=== PATIENT | female | born 1955 | race Caucasian/White ===

== ENCOUNTER → 2016-08-15 | Outpatient (REF) | payer MEDICARE, MEDICAID | LOC: LAB 15:57 | PROVIDERS: ATTEND Family Medicine | DX: Z01.818 Encounter for other preprocedural examination (principal) | CPT/HCPCS: 82565; 84520 ==

== ENCOUNTER → 2016-08-16 | Outpatient (CLI) | payer MEDICARE, MEDICAID | LOC: RAD 07:51 | PROVIDERS: ATTEND Family Medicine | DX: J39.8 Other specified diseases of upper respiratory tract (principal); R91.1 Solitary pulmonary nodule | CPT/HCPCS: 71260; Q9967 ==

== ENCOUNTER → 2016-08-30 | Outpatient (CLI) | payer MEDICARE, MEDICAID ==
[2016-08-30 12:33] LABS: MEAN PLATELET VOLUME 9.9 FL (6.0-9.5); WHITE BLOOD COUNT 8.05 10^3uL (4.0-11.0)
[2016-08-30 12:35] LABS: MEAN CORPUSCULAR HEMOGLOBIN 36.1 PG (26.0-34.0); MEAN CORPUSCULAR HGB CONC 36.4 g/dL (31.0-37.0)
[2016-08-30 12:41] LABS: ALBUMIN 3.9 g/dL (3.4-5.0); ANION GAP 14.2 MEQ/L (3-15); CALCULATED IONIZED CALCIUM 3.9 mg/dL (3.8-4.6); TOTAL PROTEIN 7.3 g/dL (6.4-8.5)
== END ==
LOC: RAD 12:16
PROVIDERS: ATTEND Family Medicine
DX: R41.82 Altered mental status, unspecified (principal); E11.9 Type 2 diabetes mellitus without complications
CPT/HCPCS: 36415; 70450; 80053; 83036; 84443; 85027

== ENCOUNTER → 2016-09-02 | Outpatient (CLI) | payer MEDICARE, MEDICAID ==
[2016-09-02 08:02] LABS: AMPHETAMINE SCREEN, URINE Negative (Negative); CANNABINOID SCREEN, URINE Negative (Negative); METHAMPHETAMINE SCREEN URINE S NEGATIVE (NEGATIVE); OPIATE SCREEN URINE Positive (Negative)
[2016-09-02 08:03] LABS: PROPOXYPHENE STAT NEGATIVE (NEGATIVE)
== END ==
LOC: LAB 07:27
PROVIDERS: ATTEND Family Medicine
DX: E11.9 Type 2 diabetes mellitus without complications (principal); R41.82 Altered mental status, unspecified
CPT/HCPCS: 80307

== ENCOUNTER 2016-09-21 20:37 | Emergency (ER) | payer MEDICARE, MEDICAID ==
[~2016-09-21] VITALS: Ht 157.5 cm; Wt 67.3 kg
[2016-09-21 20:37] VITALS: BP 147/77
--- NOTE | 2016-09-21 20:45 | NUR ---
PER EMS PATIENT HAS PERCOCET AND CIG / APPLICATION DESIGNER IN POCKETS AND SHE HAD TRIED TO TAKE A PERCOCET PRIOR TO COMING IN VIA EMS
--- NOTE | 2016-09-21 21:01 | NUR ---
Patient left the floor, has been belligerent. Unwilling to wait while Dr. Sam speaks with her Orthopedic surgeon to take off cast. Has also been very demanding that she be taken care of Immediately, very uncooperative.
--- NOTE | 2016-09-21 21:05 | NUR ---
Jose Daniel Cardenas RN notified Selene pina suprevisor that patient left AMA
== END 2016-09-21 21:00 | disposition left against medical advice (07) ==
LOC: ED 20:39
DX: S52.91XG Unspecified fracture of right forearm, subsequent encounter for closed fracture with delayed healing (principal); V49.9XXD Car occupant (driver) (passenger) injured in unspecified traffic accident, subsequent encounter; Z98.890 Other specified postprocedural states; Z91.19 Patient's noncompliance with other medical treatment and regimen; R45.4 Irritability and anger
CPT/HCPCS: 99282

== ENCOUNTER → 2016-09-21 | Outpatient (CLI) | payer MEDICARE, MEDICAID | LOC: EMS 20:30 | PROVIDERS: ATTEND Emergency Medicine | DX: S52.91XG Unspecified fracture of right forearm, subsequent encounter for closed fracture with delayed healing (principal); X58.XXXD Exposure to other specified factors, subsequent encounter; Z91.19 Patient's noncompliance with other medical treatment and regimen; R45.4 Irritability and anger ==

== ENCOUNTER 2016-09-23 14:18 | Emergency (ER) | payer MEDICARE, MEDICAID ==
[~2016-09-23] VITALS: Ht 157.5 cm; Wt 68.0 kg
[2016-09-23 14:22] VITALS: BP 128/82
--- NOTE | 2016-09-23 14:45 | NUR ---
Patient's caser up from [facility] is with her. in room. [facility] contacted for possible admission. Patient tried to elope but returned to room. Meal tray served.
[2016-09-23 15:09] LABS: BASOPHILS % (AUTO) 0 % (0-2); EOSINOPHILS # (AUTO) 0.3 10^3uL; EOSINOPHILS % (AUTO) 4 % (0-4); LYMPHOCYTES # (AUTO) 2.7 X10^3; MEAN CORPUSCULAR HGB CONC 34.4 g/dL (31.0-37.0); MEAN PLATELET VOLUME 9.5 FL (6.0-9.5); MONOCYTES # (AUTO) 0.6 X10^3; MONOCYTES % (AUTO) 7 % (3-11); NEUTROPHILS # (AUTO) 5.4 X10^3; NEUTROPHILS % (AUTO) 60 % (51-67); PLATELET COUNT 269 10^3uL (150-450)
[2016-09-23 15:10] LABS: MEAN CORPUSCULAR HEMOGLOBIN 34.3 PG (26.0-34.0); MEAN CORPUSCULAR VOLUME 100 FL (80-100)
--- NOTE | 2016-09-23 15:20 | NUR ---
called bradley garber for assistance of placement for patient, gave us info for involuntary placement at [facility] , doctor called this hospital at this time
[2016-09-23 15:26] LABS: ALBUMIN 3.6 g/dL (3.4-5.0); ALKALINE PHOSPHATASE 132 U/L (38-126); BUN/CREATININE RATIO 20 (10-20); CALCULATED IONIZED CALCIUM 4.1 mg/dL (3.8-4.6); TOTAL PROTEIN 6.8 g/dL (6.4-8.5)
--- NOTE | 2016-09-23 15:32 | NUR ---
Patient refused to void for urine specimen.
--- NOTE | 2016-09-23 15:42 | NUR ---
Patient has eloped. marketing content manager is calling [facility]. Patient cannot be found.
== END 2016-09-23 15:30 | disposition home or self-care (01) ==
LOC: EDUNIT# 14:18 → ED 14:20
DX: R45.4 Irritability and anger (principal); F17.210 Nicotine dependence, cigarettes, uncomplicated; R41.82 Altered mental status, unspecified
CPT/HCPCS: 36415; 80053; 85025; 99282; G0480; 80320; 80329

== ENCOUNTER 2016-09-23 19:14 | Emergency (ER) | payer MEDICARE, MEDICAID ==
[~2016-09-23] VITALS: Ht 157.5 cm; Wt 77.2 kg
--- NOTE | 2016-09-23 19:41 | NUR ---
REST ROOM MAID STAFF MARTIN CALLED Jessica BLACKMAN D/T PT AGRESSIVE
[2016-09-23] MEDS ORDERED: oxycODONE/ACETAMINOPHEN 10MG-325 MG (PERCOCET-10) TABLET PO ONE (20:20)
[2016-09-23] MEDS ORDERED: LORazepam 1 MG (ATIVAN) TABLET PO ONE (20:20)
--- NOTE | 2016-09-23 20:29 | NUR ---
Pt is a bad historian. Not sure if the meds on file are correct. Pts son states that she abuses her pain meds and took a full bottle of percocets since . He believes it was a 30 day supply.
--- NOTE | 2016-09-23 20:40 | NUR ---
Pt is very beligerent and rude. She also likes to negotiate her care. She will only give urine or have labs done if she receives pain medication. Pt makes threats constantly such as "I'm not staying if I don't get pain medicaiton" or "I'm not going to wait if I can't have a cigarette." Pts son is very helpful in getting pt to comply and keep her from leaving. Pts son states that she does not take care of herself properly and is abusing her pain meds. Pt does not deny anything said by the son and agrees that she isn't taking care of herself well. She is voluntarily willing to go to [facility].
[2016-09-23 20:43] LABS: BILIRUBIN,URINE Negative (Negative); CLARITY,URINE Clear; GLUCOSE, URINE (UA) Negative (Negative); LEUKOCYTE ESTERASE ,URINE Negative (Negative); PH,URINE 8.5 (5.0 - 8.0)
[2016-09-23 20:44] LABS: COLOR,URINE Dark Yellow
[2016-09-23 21:05] LABS: AMPHETAMINE SCREEN, URINE Negative (Negative); CANNABINOID SCREEN, URINE Negative (Negative); METHAMPHETAMINE SCREEN URINE S NEGATIVE (NEGATIVE); OPIATE SCREEN URINE Positive (Negative)
[2016-09-23 21:06] LABS: PROPOXYPHENE STAT NEGATIVE (NEGATIVE)
--- NOTE | 2016-09-23 21:18 | NUR ---
PT C/O R ARM PAIN SHE NO LONGER HAS CAST ON IT. PLACED PILLOW TO SUPPORT THE ARM AND ANOTHER WARM BLANKET
--- NOTE | 2016-09-23 22:00 | NUR ---
CALLED [facility] TO SEE IF THEY COULD TRANSPORT PT TO [facility]. THEY SAID THEY ARE UNABLE TO, WOULD BE ABLE IN MORNING, SO CALLED [facility] AND THEY CAN TRANSPORT PT IN APPROX 4 HOURS
[2016-09-24] MEDS ORDERED: oxycODONE/ACETAMINOPHEN 10MG-325 MG (PERCOCET-10) TABLET PO ONE (00:30)
[2016-09-24] MEDS ORDERED: LORazepam 1 MG (ATIVAN) TABLET PO ONE (00:30)
--- NOTE | 2016-09-24 01:40 | NUR ---
Report given to Breann Toribio RN at [facility].
--- NOTE | 2016-09-24 01:49 | NUR ---
Pt is sleeping comfortably in her room after receiving her medications. Pt is still very agreeable to go to [facility].
--- NOTE | 2016-09-24 02:20 | NUR ---
[facility] here to transfer pt
[2016-09-24 02:42] VITALS: BP 147/79
== END 2016-09-24 02:42 ==
LOC: ED 19:16
DX: S52.91XG Unspecified fracture of right forearm, subsequent encounter for closed fracture with delayed healing (principal); Z98.890 Other specified postprocedural states; G89.21 Chronic pain due to trauma; F43.10 Post-traumatic stress disorder, unspecified; F41.9 Anxiety disorder, unspecified; V49.9XXA Car occupant (driver) (passenger) injured in unspecified traffic accident, initial encounter; Y92.410 Unspecified street and highway as the place of occurrence of the external cause; F17.210 Nicotine dependence, cigarettes, uncomplicated
CPT/HCPCS: 81003; 99284; A9270; G0478; 80307

== ENCOUNTER → 2016-10-02 | Outpatient (CLI) | payer MEDICARE, MEDICAID ==
[~2016-10-02] VITALS: Ht 157.5 cm; Wt 65.8 kg
[2016-10-02] MEDS: LORazepam 2 MG/ML (ATIVAN) 1 ML VIAL IM ONE (12:40)
[2016-10-02] MEDS: HYDROmorphone 2 MG/ML (DILAUDID) 1 ML SYRINGE IM ONE (12:49)
== END ==
LOC: EUOP 12:21
PROVIDERS: ATTEND Family Medicine
DX: R52 Pain, unspecified (principal)
CPT/HCPCS: 96372; J1170; J2060

== ENCOUNTER → 2016-10-05 | Outpatient (CLI) | payer MEDICARE, MEDICAID | LOC: EMS 11:40 | PROVIDERS: ATTEND Emergency Medicine | DX: M79.601 Pain in right arm (principal); R21 Rash and other nonspecific skin eruption; L98.8 Other specified disorders of the skin and subcutaneous tissue ==

== ENCOUNTER → 2016-10-05 | Emergency (ER) | payer MEDICARE, MEDICAID ==
[~2016-10-05] VITALS: Ht 157.5 cm; Wt 68.0 kg
[~2016-10-05] MED LIST: NS IV 500 ML 500 ML IV SCH; NS IV 500 ML 500 ML ONE; SODIUM CHLORIDE FLUSH 10 ML SYR IV PRN; SODIUM CHLORIDE FLUSH 3 ML SYR IV PRN
[2016-10-05 12:01] VITALS: BP 76/30
--- NOTE | 2016-10-05 12:12 | NUR ---
First bag of fluids 500ml ns ARTURO at 1212 Addendum: 10/05/16 at 1301 by [id number] nicola at 1245
[2016-10-05 12:57] LABS: MEAN CORPUSCULAR HGB CONC 33.8 g/dL (31.0-37.0); MEAN PLATELET VOLUME 11.2 FL (6.0-9.5); PLATELET COUNT 179 10^3uL (150-450); WHITE BLOOD COUNT 6.72 10^3uL (4.0-11.0)
[2016-10-05 12:58] LABS: MEAN CORPUSCULAR VOLUME 104 FL (80-100)
[2016-10-05 13:12] LABS: ALBUMIN 3.1 g/dL (3.4-5.0); ALKALINE PHOSPHATASE 82 U/L (38-126); ANION GAP 9.3 MEQ/L (3-15); BUN/CREATININE RATIO 24 (10-20); CALCULATED IONIZED CALCIUM 3.7 mg/dL (3.8-4.6)
--- NOTE | 2016-10-05 13:15 | NUR ---
This nurse heard discussion with RT and pt going on and went to pt room. This nurse arrived and observed pt very agitated. Pt states to this nurse that she wants to leave and she can drink fluids at home. This nurse tried to deescalate pt, but pt refused to wait for fluids to finish infusing. Pt almost ripped her IV out, but this nurse was able to get her to sit on the side of the bed and wait so this nurse could removed IV, as well as sign AMA paperwork. Pt notifed that she could come back if she needs more care. This nurse asked pt to wait in the waiting room so a cab could be called for her, since she had no ride.
[2016-10-05 14:47] LABS: BAND NEUTROPHILS % 0 % (0-6); EOSINOPHILS % 7 % (0-4); LYMPHOCYTES # 2.4 #; MONOCYTES # 0.7 #; MONOCYTES % 11 % (3-11); RBC MORPH NORMAL (NORMAL); SEGMENTED NEUTROPHILS % 45 % (51-67); TOTAL CELLS COUNTED 100
== END | disposition left against medical advice (07) ==
LOC: EDUNIT# 11:57 → ED 11:58
DX: R07.89 Other chest pain (principal); L30.4 Erythema intertrigo; M79.631 Pain in right forearm; R45.1 Restlessness and agitation; Z91.19 Patient's noncompliance with other medical treatment and regimen
CPT/HCPCS: 36415; 71010; 80053; 82140; 84484; 85025; 85610; 85730; 99281; J7040; 99283

== ENCOUNTER → 2016-10-14 | Outpatient (CLI) | payer MEDICARE, MEDICAID ==
[~2016-10-14] MED LIST changes: +ACHYD1T PO; +ACYC30OI TP; +ALBU8CC IH; +ALEN70TA47; +ALPR.5T PO; +ALPR0.25 PO; +ALPR1TAB7 PO; +AMIT50TA3; +AMT25T PO; +BISO1TAB3 PO; +CLN.1T; +CLON0.5T3 PO; +CLON1TAB3 PO; +CODE-54 PO; +CRS350T PO; +DICL50TA PO; +DIPH1TAB25; +ENXP40I.4; +HCT25T PO; +HCTZ12.5T GT; +HYDR-3702 PO; +HYDR-3811 PO; +ISOS30TA7 PO; +KETO50CA; +LEVO250T11 PO; +LSNP10T PO; +MNTL10T PO; +NAPR550T PO; +NEOM28OI3 TP; +NITR0.4T7 SL; +NITR100C10; +NO HOME MEDICATIONS; -NS IV 500 ML 500 ML IV SCH; -NS IV 500 ML 500 ML ONE; +ONDA-50; +ONDA4TAB8 PO; +ONDA4TABED; +ONDA4TABED SL; +ONDN4T PO; +OXYC-272 PO; +OXYC1TAB12 PO; +OXYC1TAB8 PO; +POLY1DRO2 OD; +PREG50CA2 PO; -SODIUM CHLORIDE FLUSH 10 ML SYR IV PRN; -SODIUM CHLORIDE FLUSH 3 ML SYR IV PRN; +TRM50T PO
[2016-10-14 15:22] LABS: MEAN CORPUSCULAR HEMOGLOBIN 35.3 PG (26.0-34.0); MEAN CORPUSCULAR HGB CONC 34.7 g/dL (31.0-37.0); MEAN PLATELET VOLUME 10.8 FL (6.0-9.5); WHITE BLOOD COUNT 7.23 10^3uL (4.0-11.0)
== END ==
LOC: LAB 15:05
PROVIDERS: ATTEND Family Medicine
DX: D51.0 Vitamin B12 deficiency anemia due to intrinsic factor deficiency (principal)
CPT/HCPCS: 36415; 82607; 85027

== ENCOUNTER 2016-11-06 14:00 | Outpatient (RCR) | payer OTHER, MEDICARE, MEDICAID ==
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
[2016-11-13] MEDS ORDERED: DIPH1TAB25 PO (16:31)
[2016-11-13] MEDS ORDERED: MNTL10T PO (16:31)
[2016-11-13] MEDS ORDERED: OXYC10TA7 PO (16:31)
[2016-11-13] MEDS ORDERED: ONDAN4ODT PO (16:31)
[2016-11-13] MEDS ORDERED: QUET50TA76 PO (16:31)
[2016-11-13] MEDS ORDERED: ALBU8.5H6 INH (16:31)
[2016-11-13] MEDS ORDERED: CYAN10004 IM (16:31)
[2016-11-13] MEDS ORDERED: CLON1TAB3 PO (16:31)
[2016-11-13] MEDS ORDERED: AMIT50TA3 PO (16:31)
[2016-11-13] MEDS ORDERED: ISM30TCR PO (16:31)
== END 2016-12-09 11:09 | disposition home or self-care (01) ==
LOC: OT 14:00
PROVIDERS: ATTEND Orthopaedic Surgery
DX: S52.91 Unspecified fracture of right forearm (principal); M25.621 Stiffness of right elbow, not elsewhere classified; M25.631 Stiffness of right wrist, not elsewhere classified; V43.51XD Car driver injured in collision with sport utility vehicle in traffic accident, subsequent encounter

== ENCOUNTER 2016-11-13 07:48 | Observation (INO) | payer MEDICARE, MEDICAID ==
[~2016-11-13] VITALS: Ht 165.1 cm; Wt 70.1 kg
[~2016-11-13 07:48] MED LIST changes: -ALBU8.5H6 INH; -AMIT50TA3 PO; -CYAN10004 IM; -DIPH1TAB25 PO; -ISM30TCR PO; -ONDAN4ODT PO; -OXYC10TA7 PO; -QUET50TA76 PO
[2016-11-13] MEDS ORDERED: LORazepam 2 MG/ML (ATIVAN) 1 ML VIAL IV ONE (07:55)
[2016-11-13] MEDS ORDERED: BACITRACIN OINTMENT 0.9 GM PACKET TOP ONE (07:55)
[2016-11-13] MEDS ORDERED: ONDANSETRON 2 MG/ML (Z0FRAN) 2 ML VIAL IV ONE (07:55)
[2016-11-13] MEDS ORDERED: fentaNYL 100 MCG/2 ML VIAL IV ONE (07:55)
[2016-11-13] MEDS ORDERED: LIDOCAINE/EPINEPHRINE 1%-1:100,000 (XYLOCAINE) 20ML VIAL TOP ONE (07:55)
[2016-11-13 07:58] LABS: BASOPHILS % (AUTO) 0 % (0-2); EOSINOPHILS # (AUTO) 0.4 10^3uL; EOSINOPHILS % (AUTO) 5 % (0-4); LYMPHOCYTES # (AUTO) 3.2 X10^3; MEAN CORPUSCULAR HEMOGLOBIN 33.7 PG (26.0-34.0); MEAN CORPUSCULAR HGB CONC 33.7 g/dL (31.0-37.0); MEAN CORPUSCULAR VOLUME 100 FL (80-100); MEAN PLATELET VOLUME 10.8 FL (6.0-9.5); MONOCYTES # (AUTO) 0.7 X10^3; MONOCYTES % (AUTO) 7 % (3-11); NEUTROPHILS # (AUTO) 5.3 X10^3; NEUTROPHILS % (AUTO) 55 % (51-67); PLATELET COUNT 202 10^3uL (150-450); WHITE BLOOD COUNT 9.72 10^3uL (4.0-11.0)
[2016-11-13 08:07] LABS: BILIRUBIN,URINE Negative (Negative); CLARITY,URINE Clear; COLOR,URINE Yellow; GLUCOSE, URINE (UA) Negative (Negative); LEUKOCYTE ESTERASE ,URINE Negative (Negative); UROBILINOGEN,URINE 0.2 mg/dL (0.2-1.0)
[2016-11-13 08:13] LABS: AMPHETAMINE SCREEN, URINE Negative (Negative); METHAMPHETAMINE SCREEN URINE S NEGATIVE (NEGATIVE)
[2016-11-13 08:13] LABS: ALBUMIN 4.3 g/dL (3.4-5.0); ALKALINE PHOSPHATASE 149 U/L (38-126); ANION GAP 21.5 MEQ/L (3-15); BUN/CREATININE RATIO 13 (10-20); CALCULATED IONIZED CALCIUM 3.6 mg/dL (3.8-4.6); CREATINE KINASE 94 U/L (30-135); TOTAL PROTEIN 8.1 g/dL (6.4-8.5)
[2016-11-13 08:14] LABS: CANNABINOID SCREEN, URINE Negative (Negative); OPIATE SCREEN URINE Negative (Negative); PROPOXYPHENE STAT NEGATIVE (NEGATIVE)
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
--- NOTE | 2016-11-13 09:12 | NUR ---
pt snoring, eyes open
--- NOTE | 2016-11-13 10:17 | NUR ---
correctional case manager in room
--- NOTE | 2016-11-13 10:35 | NUR ---
Condition repor from ED received
[2016-11-13 10:45] VITALS: BP 108/60
--- NOTE | 2016-11-13 10:45 | NUR ---
Admit to room 345 per cart - total assist transfer c slide board - unkept foul smelling body odor
[2016-11-13] MEDS ORDERED: ONDANSETRON 2 MG/ML (Z0FRAN) 2 ML VIAL IV PRN (10:55)
--- NOTE | 2016-11-13 10:55 | NUR ---
Up to BSC c assist X2 -sitting on BSC tipped forward --> staff assisting for safety - back to bed c assist X2 - unkept, dried blood on face and hair - "I need to go - I have to move out today" - repeats self over and over - admission assessment in progress - repeats above and gives short abrupt answer to only a few of the questions
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
[2016-11-13 12:00] VITALS: BP 117/65
[2016-11-13] MEDS ORDERED: NS FLUSH 3 ML PRN IV (12:05)
[2016-11-13] MEDS ORDERED: NS FLUSH 10 ML PRN IV (12:05)
[2016-11-13 13:20] VITALS: BP 106/56
[2016-11-13 14:10] VITALS: BP 106/50
--- NOTE | 2016-11-13 14:10 | NUR ---
Awake - constantly requesting "I want to go home" "I have a dog" "My son doesn't want any thing to do with me"
[2016-11-13 16:10] VITALS: BP 96/62
[2016-11-13] MEDS ORDERED: OXYC10TA7 PO (16:31)
[2016-11-13] MEDS ORDERED: QUET50TA76 PO (16:31)
[2016-11-13] MEDS ORDERED: ALBU8.5H6 INH (16:31)
[2016-11-13] MEDS ORDERED: CYAN10004 IM (16:31)
[2016-11-13] MEDS ORDERED: AMIT50TA3 PO (16:31)
[2016-11-13] MEDS ORDERED: MNTL10T PO (16:31)
[2016-11-13] MEDS ORDERED: CLON1TAB3 PO (16:31)
[2016-11-13] MEDS ORDERED: DIPH1TAB25 PO (16:31)
[2016-11-13] MEDS ORDERED: ISM30TCR PO (16:31)
[2016-11-13] MEDS ORDERED: ONDAN4ODT PO (16:31)
--- NOTE | 2016-11-13 16:34 | NUR ---
MED REC COMPLETED-current med list obtained from Ext Med History application, PCP listing, and retail pharmacies.
--- NOTE | 2016-11-13 17:00 | NUR ---
Refused supper - "I want Pepsi"
--- NOTE | 2016-11-13 18:00 | NUR ---
PV counselor in room
--- NOTE | 2016-11-13 18:10 | NUR ---
Dr Velarde in room
--- NOTE | 2016-11-13 18:30 | NUR ---
IV DC'd from [facility] - pressure held until bleeding stopped - drsg applied - clothing from the clothes closet brought to patient
--- NOTE | 2016-11-13 18:44 | NUR ---
Dr Velarde in room
--- NOTE | 2016-11-13 18:55 | NUR ---
Cece called from ICU - phone given to Julio Cesar for her to give directions to the taxi staff - Taxi staff reports will pick her up @ the ED entrance - "I will just wait her in the lobby" - "What does that [facility] have written on it? " --- while in ED discussing with Cherrie TORRES patient waiting in ED lobby for van PBX software support representative came to us and said "she just got into the white van" -- Cherrie and Anjali Connell went out to the van - Private person was calling the taxi to verify they were coming to pick her up - Cherrie requested patient exit van
--- NOTE | 2016-11-13 19:05 | NUR ---
Embedded Linux Developer notified of patient's behavior and Dr Velarde aware of situation
--- NOTE | 2016-11-13 19:19 | NUR ---
this pt dismissed from icu, ceci called for her, when she got down here she was trying to hitch a ride from pts mother in parking lot. she climbed into the back seat of the vehicle. the vehicle she climbed into was a psy pt in the er and had been given haldol and ativan, mother was upset as well as pt. opened back door of van and told this pt to get out and sit in lobby. pt complied relunctantly. mother whispered thank you to this nurse. ceci called again to confirm pickup. pt picked up approx 5 min after ceci called 2nd time. christiana naranjo nicu rn
[2016-11-14] MEDS ORDERED: NS FLUSH 3 ML DAILY IV SCH (09:00)
== END 2016-11-13 18:55 | disposition home or self-care (01) ==
LOC: EDUNIT# 07:48 → ED 07:49 → ICU 10:15 → INTOOBSV 10:15
PROVIDERS: ADMIT Family Medicine; ATTEND Family Medicine
PROC: 0HQ1XZZ Repair Face Skin, External Approach (ICD-10-PCS; principal; 2016-11-13)
DX: T42.4X1A Poisoning by benzodiazepines, accidental (unintentional), initial encounter (principal); T40.2X1A Poisoning by other opioids, accidental (unintentional), initial encounter; R41.82 Altered mental status, unspecified; S01.112A Laceration without foreign body of left eyelid and periocular area, initial encounter; I10 Essential (primary) hypertension; F41.9 Anxiety disorder, unspecified; F31.9 Bipolar disorder, unspecified; H54.8 Legal blindness, as defined in USA; F17.200 Nicotine dependence, unspecified, uncomplicated; I25.2 Old myocardial infarction; W18.30XA Fall on same level, unspecified, initial encounter; Y92.096 Garden or yard of other non-institutional residence as the place of occurrence of the external cause; Z86.718 Personal history of other venous thrombosis and embolism
CPT/HCPCS: 12013; 36415; 51701; 70450; 80053; 80307; 80346; 80365; 81003; 82550; 82553; 83880; 84443; 84484; 85025; 85379; 85610; 86140; 93005; 96361; 96374; 96375; 99285; A9270; G0378; G0480; J2060; J2405; J3010; J7030; 12002; 80320; 80329; 93010; 99218

== ENCOUNTER → 2016-11-13 | Outpatient (CLI) | payer MEDICARE, MEDICAID ==
[~2016-11-13] MED LIST changes: +ALBU8.5H6 INH; +AMIT50TA3 PO; +CYAN10004 IM; +DIPH1TAB25 PO; +ISM30TCR PO; +ONDAN4ODT PO; +OXYC10TA7 PO; +QUET50TA76 PO
== END ==
LOC: EMS 07:32
PROVIDERS: ATTEND Family Medicine
DX: R41.82 Altered mental status, unspecified (principal); S01.81XA Laceration without foreign body of other part of head, initial encounter; W18.39XA Other fall on same level, initial encounter; Y92.008 Other place in unspecified non-institutional (private) residence as the place of occurrence of the external cause; R51 Headache

== ENCOUNTER → 2016-11-15 | Outpatient (CLI) | payer MEDICARE, MEDICAID ==
[~2016-11-15] MED LIST changes: +ALBU8.5H6 INH; +AMIT50TA3 PO; +CYAN10004 IM; +DIPH1TAB25 PO; +ISM30TCR PO; +ONDAN4ODT PO; +OXYC10TA7 PO; +QUET50TA76 PO
== END ==
LOC: EMS 10:12
DX: Z53.20 Procedure and treatment not carried out because of patient's decision for unspecified reasons (principal)

== ENCOUNTER 2016-11-16 13:49 | Emergency (ER) | payer MEDICARE, MEDICAID ==
[~2016-11-16] VITALS: Ht 157.5 cm; Wt 69.9 kg
[2016-11-16 14:31] VITALS: BP 127/57
== END 2016-11-16 14:36 | disposition home or self-care (01) ==
LOC: ED 13:50
DX: R07.9 Chest pain, unspecified (principal); G89.29 Other chronic pain
CPT/HCPCS: 99281; 99282